=== PATIENT | male | born 1975 | race Caucasian/White ===

== ENCOUNTER 2021-02-02 18:57 | Emergency (ER) | payer OTHER ==
[2021-02-02] MEDS ORDERED: XYLOCAINE 1% HCL 20 ML MDV IJ ONE (19:29)
--- NOTE | 2021-02-02 19:59 | ERPHSYRPT ---
- History of Present Illness Time Seen by Provider: 02/02/21 19:59 Source: patient Exam Limitations: no limitations Patient Subjective Stated Complaint: pt for laceration to left great toe with chain saw Triage Nursing Assessment: pt alert, resp Physician History: This is a 46-year-old white male who was using a chain saw at home when it hit and lacerated the top of his left big toe. He is unsure when his last tetanus immunization was. Timing/Duration: today Quality: painful Severity: mild Location: feet (Dorsal aspect left great toe) Associated Symptoms: denies symptoms Allergies/Adverse Reactions: No Known Drug Allergies Allergy (Verified 02/02/21 19:12) Home Medications: Amlodipine Besylate/Benazepril [Amlodipine-Benazepril 10-20 mg] 1 ea DAILY 02/02/21 [History] Buspirone HCl [Buspar] 1 ea DAILY 02/02/21 [History] Omeprazole 20 mg PO 02/02/21 [History] Trazodone HCl 50 mg [Desyrel 50 mg] 1 ea DAILY 02/02/21 [History] Hx Tetanus, Diphtheria Vaccination/Date Given: No Hx Influenza Vaccination/Date Given: No Hx Pneumococcal Vaccination/Date Given: No Immunizations Up to Date: Yes Travel Risk - International Travel Have you traveled outside of the country in past 3 weeks: No - Coronavirus Screening Are you exhibiting any of the following symptoms?: No Close contact with a COVID-19 positive Pt in past 14-21 Days: No - Vaccine Status Have you recieved a Covid-19 vaccination: Yes [employer] - Vaccination Dates Date of 2cond Vaccination (if applicable): ? - Review of Systems Constitutional: No Symptoms Eyes: No Symptoms Ears, Nose, & Throat: No Symptoms Respiratory: No Symptoms Cardiac: No Symptoms Abdominal/Gastrointestinal: No Symptoms Genitourinary Symptoms: No Symptoms Musculoskeletal: No Symptoms Skin: Other (Laceration dorsal aspect left toe) Neurological: No Symptoms Psychological: No Symptoms Endocrine: No Symptoms Hematologic/Lymphatic: No Symptoms Immunological/Allergic: No Symptoms All Other Systems: Reviewed and Negative - Past Medical History Pertinent Past Medical History: Yes Neurological History: No Pertinent History ENT History: No Pertinent History Cardiac History: Hypertension Respiratory History: No Pertinent History Endocrine Medical History: No Pertinent History Musculoskeletal History: No Pertinent History GI Medical History: No Pertinent History History: No Pertinent History Psycho-Social History: Depression - Past Surgical History Past Surgical History: No Neuro Surgical History: No Pertinent History Cardiac: No Pertinent History Respiratory: No Pertinent History Gastrointestinal: No Pertinent History Genitourinary: No Pertinent History Musculoskeletal: Other Male Surgical History: No Pertinent History Other Surgical History: RIGHT SHOULDER SURGERY - Social History Smoking Status: Never smoker Exposure to second hand smoke: Yes Drug Use: none Patient Lives Alone: No - Nursing Vital Signs Nursing Vital Signs: Initial Vital Signs Temperature 97.7 F 02/02/21 19:05 Pulse Rate 86 02/02/21 19:05 Respiratory Rate 18 02/02/21 19:05 Blood Pressure 178/93 02/02/21 19:05 O2 Sat by Pulse Oximetry 98 02/02/21 19:05 Pain Scale Pain Intensity 6 - Physical Exam General Appearance: no apparent distress, alert, anxiety Eye Exam: PERRL/EOMI, eyes nml inspection Ears, Nose, Throat Exam: normal ENT inspection, moist mucous membranes Neck Exam: normal inspection, non-tender, supple, full range of motion Respiratory Exam: No chest tenderness, No respiratory distress Gastrointestinal/Abdomen Exam: No tenderness Rectal Exam: not done Back Exam: normal inspection, normal range of motion, No CVA tenderness, No vertebral tenderness Extremity Exam: normal range of motion, pelvis stable, lacerations (Dorsal aspect left big toe neurovascularly intact, tendon function intact. 2.5 cm horizontal laceration. Nail and nailbed intact. 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, normal mood/affect, nml cerebellar function, sensation nml Skin Exam: laceration (See above) Lymphatic Exam: adenopathy SpO2 Interpretation: normal SpO2: 98 O2 Delivery: Room Air Procedures - Laceration/Wound Repair Left Dorsal Toe Time of Procedure: 20:25 Wound Location: Left, foot (Big toe dorsal aspect) Wound Length (cm): 2.5 Wound's Depth, Shape: superficial, linear Wound Explored: clean (Evaluation was made to base in a bloodless field no fore ign body noted.) Irrigated: Yes Hibiclens Prep: Yes Anesthesia: digital block, 1% Lidocaine Volume Anesthetic (ccs): 5 Wound Debrided: minimal Wound Repaired With: sutures Suture Size/Type: 3-0, nylon Number of Sutures: 6 Layer Closure?: No Sterile Dressing Applied?: Yes - Course Nursing assessment & vital signs reviewed: Yes Ordered Tests: Active Orders 24 hr Category Date Time Status FOOT (2 VIEWS) Stat Exams 02/02/21 Ordered Medication Summary Discontinued Medications Generic Name Dose Route Start Last Admin Trade Name Valentin PRN Reason Stop Dose Admin Lidocaine HCl 10 ml 02/02/21 19:29 02/02/21 19:29 Xylocaine 1% Hcl 20 Ml Mdv IJ 02/02/21 19:30 10 ml STAT ONE Administration - Progress Progress: improved, pain not gone completely, re-examined Progress Note: 02/02/21 20:47 No acute fracture or dislocation on the patient's left foot x-ray. Counseled pt/family regarding: diagnosis, need for follow-up, rad results - Departure Departure Disposition: Home Clinical Impression: Toe laceration Condition: Stable Critical Care Time: No Referrals: ALEJO FREIRE NP [Primary Care Provider] - Additional Instructions: Keep current dressing in place for 24 hours. Tomorrow evening, may remove the dressing in wash the area soap and water daily thereafter. After washing and blot drying or using a hairdryer to dry the site, reapply a thin layer of antibiotic ointment. Cover the repair site with bandage each day. Suture removal in 10 days. Take your antibiotics as prescribed. May return to the emergency department or your primary care physician for suture removal. If there is any further concerns regarding this site, may follow-up with Dr. Donahue, our local caser. Prescriptions: Hydrocodone/APAP 5/325 [Thurmond 5/325 mg] 1 each PO Q8H PRN PRN #8 tablet MDD 3 PRN Reason: Pain Cephalexin Mh 500 mg [Keflex 500 mg] 500 mg PO TID #21 cap
[2021-02-02 20:10] VITALS: BP 144/80
[2021-02-02] MEDS ORDERED: Adacel Vial IM ONE ×2 (20:44→20:47)
[2021-02-02] MEDS ORDERED: KEFLEX 500 MG PO ONE (20:51)
[2021-02-02] MEDS ORDERED: NORCO 5/325 MG PO ONE (20:52)
[2021-02-02] MEDS ORDERED: KEFLEX 500 MG ONE (20:54)
[2021-02-02] MEDS ORDERED: NORCO 5/325 MG ONE (20:55)
[2021-02-02 21:13] VITALS: PULSE 90; O2SAT 99
--- NOTE | 2021-02-04 07:56 | XRAY ---
Indication: Great toe chainsaw injury. Comparison: None 2 portable views left foot demonstrates small cortical fracture base distal great toe medial aspect with overlying bandage material. Incidental tiny plantar heel spur. No other bony, articular, or soft tissue abnormalities.
== END 2021-02-02 21:14 | disposition home or self-care (01) ==
LOC: ED 18:57
DX: S91.112A Laceration without foreign body of left great toe without damage to nail, initial encounter (principal); W45.8XXA Other foreign body or object entering through skin, initial encounter; Y93.89 Activity, other specified; Y92.9 Unspecified place or not applicable
CPT/HCPCS: 12001; 73620; 90471; 90715; 99284; A9270-GY

== ENCOUNTER 2024-07-12 06:22 | Day surgery (SDC) | payer OTHER ==
[2024-07-12 06:43] VITALS: RESP 18
[2024-07-12] MEDS: Lactated Ringers 1,000 ML IV SCH (06:45)
[2024-07-12] MEDS ORDERED: Lactated Ringers 1,000 ML IV ONE (06:46)
[2024-07-12 06:57] LABS: Absolute Neutrophil Ct (ANC) 2.74 x10^3/uL (1.78-5.38); BASOPHIL % 0.5 % (0.2-1.2); Basophil (Absolute #) 0.02 x10^3/uL (0.01-0.08); Eosinophil % 2.3 % (0.8-7.0); Hematocrit 42.7 % (40.1-51.0); Hemoglobin 15.4 g/dL (13.7-17.5); Lymphocyte (Absolute #) 1.05 x10^3/uL (1.32-3.57); Lymphocytes % 24.5 % (21.8-53.1); Mean Corpuscular Hemoglobin 31.4 pg (25.7-32.2); Mean Corpuscular Hgb Concent. 36.1 g/dL (32.3-36.5); Mean Platelet Volume 9.9 fL (9.4-12.4); Monocyte (Absolute #) 0.38 x10^3/uL (0.30-0.82); Monocytes % 8.9 % (5.3-12.2); Neutrophil % 63.8 % (34.0-67.9); Platelet Count 137 x10^3/uL (163-337); Red Blood Count 4.91 x10^6/uL (4.63-6.08); Red Cell Distribution Width 13.1 % (11.6-14.4); White Blood Count 4.3 x10^3/uL (4.23-9.07)
[2024-07-12 07:10] LABS: ALBUMIN 4.3 g/dL (3.5-5.0); ANION GAP 11.3 MEQ/L (5-15); BILIRUBIN,TOTAL 1.4 mg/dL (0.2-1.3); Calcium 8.9 mg/dL (8.4-10.2); Creatinine 1 1.17 mg/dL (0.66-1.25); EST GLOMERULAR FILTRATION RATE 75.5 ML/MIN; Potassium 3.9 mmol/L (3.5-5.1); Total Protein 6.8 g/dL (6.3-8.2)
[2024-07-12] MEDS ORDERED: Xylocaine-Mpf 2% 5 Ml Vial ONE (08:00)
[2024-07-12] MEDS ORDERED: Versed 2 MG/2 ML Injection ONE (08:00)
[2024-07-12] MEDS ORDERED: propofoL IV ONE ×2 (08:00→08:14)
[2024-07-12] MEDS ORDERED: ROBINUL ONE (08:03)
[2024-07-12 09:01] VITALS: TEMP 97.9
[2024-07-12 09:14] VITALS: BP 147/99; PULSE 58; O2SAT 99
--- NOTE | 2024-07-13 14:08 | OP ---
SURGERY DATE/TIME: 07/12/2024 [id number] PREOPERATIVE DIAGNOSIS: Screening exam. POSTOPERATIVE DIAGNOSIS: Multiple colon polyps. PROCEDURE: Colonoscopy with hot snare polypectomy and cold forceps biopsy. SURGEON: Quentin Jules MD ANESTHESIA: Medications were given by the anesthesia department. INDICATIONS: The patient is a 49-year-old white male patient presenting now for his first screening colonoscopy. The patient was appraised of the risks of the procedure including risk of perforation, phlebitis, untoward reaction to medication, bleeding, and missed lesions. The patient verbalized his understanding and desire to have procedure performed. DESCRIPTION OF PROCEDURE AND FINDINGS: The patient was given medication by the anesthesia department. He had continuous pulse oximetry, ECG monitoring, and intermittent blood pressure monitoring during the examination. He was placed in the left lateral decubitus position. Digital rectal examination was performed and revealed normal anal sphincter tone, no masses, and a normal prostate. The flexible Olympus videocolonoscope was used to intubate the rectum. A view of the colon was developed sequentially to the cecum. Upon insertion and withdrawal was noted a polyp in the transverse colon that was small and destroyed by the passage of the cold forceps biopsy instrument. There was a larger polyp measuring approximately 1.5 cm in the descending colon which was removed using the hot polypectomy snare and retrieved for pathologic evaluation. A third polyp was noted in the rectosigmoid area, and this was removed likewise using the hot polypectomy snare and retrieved for pathologic evaluation. With no other mucosal lesions being encountered, the scope was removed from the patient, who tolerated the procedure well and was sent back to outpatient recovery in good condition. The prep was noted to be fair.
== END 2024-07-12 09:24 | disposition home or self-care (01) ==
LOC: SDC 06:22
PROVIDERS: ATTEND Family Medicine
DX: Z12.11 Encounter for screening for malignant neoplasm of colon (principal); D12.7 Benign neoplasm of rectosigmoid junction; D12.4 Benign neoplasm of descending colon; D12.3 Benign neoplasm of transverse colon
CPT/HCPCS: 36415; 80053; 85025; 93005; J2250; J2704